=== PATIENT | male | born 1945 | race Caucasian/White ===

== ENCOUNTER 2018-10-20 23:15 | Emergency (ER) | payer OTHER ==
[~2018-10-20] VITALS: Ht 180.3 cm; Wt 88.5 kg
[2018-10-20 23:22] VITALS: BP 149/97
== END 2018-10-21 00:06 | disposition home or self-care (01) ==
LOC: ER 23:15
DX: I10 Essential (primary) hypertension (principal)

== ENCOUNTER → 2019-12-20 | Outpatient (CLI) | payer OTHER | LOC: SJCVCIMAG 10:08 | DX: I25.10 Atherosclerotic heart disease of native coronary artery without angina pectoris (principal); I10 Essential (primary) hypertension; E78.5 Hyperlipidemia, unspecified ==

== ENCOUNTER → 2020-08-13 | Outpatient (CLI) | payer OTHER | LOC: SJCVC 12:27 | PROVIDERS: ATTEND Internal Medicine Cardiovascular Disease | DX: I25.10 Atherosclerotic heart disease of native coronary artery without angina pectoris (principal); E78.00 Pure hypercholesterolemia, unspecified; I10 Essential (primary) hypertension; E11.9 Type 2 diabetes mellitus without complications; Z79.899 Other long term (current) drug therapy; Z87.891 Personal history of nicotine dependence ==

== ENCOUNTER → 2021-06-20 | Outpatient (CLI) | payer OTHER | LOC: CAT 13:56 | PROVIDERS: ATTEND Neuromusculoskeletal Medicine & OMM | DX: J32.1 Chronic frontal sinusitis (principal); J32.2 Chronic ethmoidal sinusitis; J32.8 Other chronic sinusitis ==

== ENCOUNTER → 2021-07-11 | Outpatient (CLI) | payer OTHER | LOC: SJCVCIMAG 07:33 | PROVIDERS: ATTEND Internal Medicine Cardiovascular Disease | DX: R93.1 Abnormal findings on diagnostic imaging of heart and coronary circulation (principal) ==